=== PATIENT | male | born 1950 | race Caucasian/White ===

== ENCOUNTER 2016-05-27 10:58 | Emergency (ER) | payer OTHER ==
[~2016-05-27] VITALS: Ht 180.3 cm; Wt 79.8 kg
[2016-05-27 13:24] VITALS: BP 121/78
== END 2016-05-27 13:24 | disposition home or self-care (01) ==
LOC: ED 10:58
DX: M25.422 Effusion, left elbow (principal); E03.9 Hypothyroidism, unspecified; I10 Essential (primary) hypertension

== ENCOUNTER 2016-07-10 10:54 | Emergency (ER) | payer OTHER ==
[2016-07-10 13:09] VITALS: BP 120/86
== END 2016-07-10 13:09 | disposition home or self-care (01) ==
LOC: ED 10:54
DX: M25.461 Effusion, right knee (principal); I10 Essential (primary) hypertension; E03.9 Hypothyroidism, unspecified
CPT/HCPCS: Q0092

== ENCOUNTER 2017-09-29 18:16 | Emergency (ER) | payer OTHER ==
[~2017-09-29] VITALS: Ht 180.3 cm; Wt 86.6 kg
[2017-09-29 20:35] VITALS: BP 127/84
== END 2017-09-29 20:26 | disposition home or self-care (01) ==
LOC: ED 18:16
DX: L02.31 Cutaneous abscess of buttock (principal); I10 Essential (primary) hypertension
CPT/HCPCS: J2001

== ENCOUNTER 2017-10-01 15:18 | Emergency (ER) | payer SELFPAY ==
[~2017-10-01] VITALS: Ht 180.3 cm; Wt 85.7 kg
[2017-10-01 15:20] VITALS: BP 127/77; Ht 180.3 cm; Wt 85.7 kg
== END 2017-10-01 16:30 | disposition home or self-care (01) ==
LOC: ED 15:18
DX: Z48.01 Encounter for change or removal of surgical wound dressing (principal)

== ENCOUNTER 2017-10-03 13:54 | Emergency (ER) | payer SELFPAY ==
[~2017-10-03] VITALS: Ht 180.3 cm; Wt 85.3 kg
[2017-10-03 14:06] VITALS: Ht 180.3 cm; Wt 85.3 kg
[2017-10-03 15:44] VITALS: BP 118/67
== END 2017-10-03 15:44 | disposition home or self-care (01) ==
LOC: ED 13:54
DX: Z48.01 Encounter for change or removal of surgical wound dressing (principal); M25.561 Pain in right knee; I10 Essential (primary) hypertension